=== PATIENT | female | born 1950 | race African-American/Black ===

== ENCOUNTER → 2022-11-14 | Outpatient (CLI) | payer BC ==
[~2022-11-14] MED LIST: ALBUTEROL (0.083%) 2.5MG/3ML NEB ONE
== END | disposition home or self-care (01) ==
LOC: PF 12:42
PROVIDERS: ATTEND Internal Medicine Critical Care Medicine
DX: J98.4 Other disorders of lung (principal); R06.02 Shortness of breath; R05.9 Cough, unspecified; Z28.39 Other underimmunization status
CPT/HCPCS: 94060; 94727; 94729; Z7610